=== PATIENT | female | born 1960 | race African-American/Black ===

== ENCOUNTER 2017-06-19 08:36 | Emergency (ER) | payer OTHER ==
[~2017-06-19] VITALS: Ht 157.5 cm; Wt 77.0 kg
[~2017-06-19 08:36] MED LIST: DILT180C69 PO; GABA300C PO; HYDR25TA PO; INSULIN SUBCUT; LANTUSUD SUBCUT; LIP40 PO; LOSA25TA12 PO
[2017-06-19] MEDS ORDERED: ACETAMINOPHEN WITH CODEINE 300/30MG TABLET PO STA (10:12)
[2017-06-19] MEDS ORDERED: SODIUM CHLORIDE 0.9% 1,000 ML IV ONE (10:12)
[2017-06-19 11:25] LABS: BASOPHILS % 0.6 % (0.0-2.0); EOSINOPHILS % 0.2 % (0.0-5.0); HEMATOCRIT. 39.6 % (36.0-48.0); HEMOGLOBIN. 12.5 g/dL (12.0-16.0); LYMPHOCYTES % 11.5 % (20.0-50.0); MEAN CORPUSCULAR HEMOGLOBIN 28.3 pg (28.0-32.0); MEAN CORPUSCULAR VOLUME 89.8 fL (81.0-99.0); MEAN PLATELET VOLUME 9.8 fl (7.4-10.4); MONOCYTES % 4.9 % (2.0-8.0); NEUTROPHILS % 82.8 % (40.0-76.0); PLATELET 248 x1000/uL (130-400); RED BLOOD CELL COUNT 4.41 mill/uL (4.2-5.4)
[2017-06-19 11:31] LABS: PROTHROMBIN TIME 10.8 sec (9.4-11.6)
[2017-06-19 11:39] LABS: CARBON DIOXIDE 26 mEq/L (21-32); CHLORIDE 99 mEq/L (98-107)
[2017-06-19] MEDS ORDERED: INSULIN REGULAR (HUMULIN R) 300UNITS/3ML IV ONE ×2 (12:15→14:00)
[2017-06-19 13:34] VITALS: BP 140/92
== END 2017-06-19 15:33 | disposition home or self-care (01) ==
LOC: ER 08:53
DX: E11.649 Type 2 diabetes mellitus with hypoglycemia without coma (principal); R41.0 Disorientation, unspecified; R51 Headache; T38.3X5A Adverse effect of insulin and oral hypoglycemic [antidiabetic] drugs, initial encounter; Y92.098 Other place in other non-institutional residence as the place of occurrence of the external cause; I12.9 Hypertensive chronic kidney disease with stage 1 through stage 4 chronic kidney disease, or unspecified chronic kidney disease; E11.22 Type 2 diabetes mellitus with diabetic chronic kidney disease; N18.9 Chronic kidney disease, unspecified; Z90.710 Acquired absence of both cervix and uterus; Z79.4 Long term (current) use of insulin; Z79.899 Other long term (current) drug therapy
CPT/HCPCS: 36415; 70450; 80053; 82962; 85025; 85610; 93005; 96361; 96374; 96376; 99285; J1815; J7030

== ENCOUNTER 2018-01-10 14:06 | Emergency (ER) | payer OTHER ==
[~2018-01-10] VITALS: Ht 165.1 cm; Wt 80.0 kg
[2018-01-10] MEDS ORDERED: ACETAMINOPHEN WITH CODEINE 300/30MG TABLET PO ONE (15:00)
[2018-01-10 16:24] VITALS: BP 142/71
== END 2018-01-10 16:25 | disposition home or self-care (01) ==
LOC: ER 14:54
DX: S90.02XA Contusion of left ankle, initial encounter (principal); V03.90XA Pedestrian on foot injured in collision with car, pick-up truck or van, unspecified whether traffic or nontraffic accident, initial encounter; Y93.01 Activity, walking, marching and hiking; Y92.410 Unspecified street and highway as the place of occurrence of the external cause; R03.0 Elevated blood-pressure reading, without diagnosis of hypertension; E78.00 Pure hypercholesterolemia, unspecified
CPT/HCPCS: 73552; 73590; 73630; 99284

== ENCOUNTER 2018-06-18 05:40 | Emergency (ER) | payer OTHER ==
[~2018-06-18] VITALS: Ht 165.1 cm; Wt 95.0 kg
[~2018-06-18 05:40] MED LIST changes: +DILT180C66 PO; -DILT180C69 PO
[2018-06-18] MEDS ORDERED: BLOOD SUGAR DIAGNOSTIC STRIP TEST ONE (07:15)
[2018-06-18 07:17] VITALS: BP 140/84
== END 2018-06-18 07:46 | disposition home or self-care (01) ==
LOC: ER 05:40
DX: E11.649 Type 2 diabetes mellitus with hypoglycemia without coma (principal); E78.00 Pure hypercholesterolemia, unspecified; I10 Essential (primary) hypertension; Z98.890 Other specified postprocedural states; Z79.4 Long term (current) use of insulin; Z79.899 Other long term (current) drug therapy
CPT/HCPCS: 82962; 93005; 99283

== ENCOUNTER 2020-03-10 22:19 | Emergency (ER) | payer OTHER ==
[~2020-03-10] VITALS: Ht 157.5 cm; Wt 87.0 kg
[~2020-03-10 22:19] MED LIST changes: -LOSA25TA12 PO; +LOSA25TA26 PO
[2020-03-10] MEDS ORDERED: HYDROCODONE/ACETAMINOPHEN 5/325MG TABLET PO ONE (23:00)
[2020-03-10 23:32] VITALS: BP 133/68
== END 2020-03-10 23:33 | disposition home or self-care (01) ==
LOC: ER 22:19
DX: S90.562A Insect bite (nonvenomous), left ankle, initial encounter (principal); M25.572 Pain in left ankle and joints of left foot; E11.9 Type 2 diabetes mellitus without complications; E78.5 Hyperlipidemia, unspecified; I10 Essential (primary) hypertension; W57.XXXA Bitten or stung by nonvenomous insect and other nonvenomous arthropods, initial encounter; Y93.9 Activity, unspecified; Y92.9 Unspecified place or not applicable; Z79.4 Long term (current) use of insulin; Z85.9 Personal history of malignant neoplasm, unspecified; Z98.890 Other specified postprocedural states
CPT/HCPCS: 99282

== ENCOUNTER 2021-03-14 19:45 | Emergency (ER) | payer MEDICARE, MEDICAID ==
[~2021-03-14] VITALS: Ht 157.5 cm; Wt 77.0 kg
[2021-03-14] MEDS ORDERED: KETOROLAC 15MG/ML VIAL IM ONE (21:45)
[2021-03-14 22:00] VITALS: BP 143/78
== END 2021-03-15 00:18 | disposition left against medical advice (07) ==
LOC: ER 19:45
DX: M79.645 Pain in left finger(s) (principal); E11.9 Type 2 diabetes mellitus without complications; I10 Essential (primary) hypertension; Z98.890 Other specified postprocedural states; Z79.899 Other long term (current) drug therapy
CPT/HCPCS: 73130; 96372; 99283; J1885

== ENCOUNTER 2022-03-06 13:20 | Inpatient (IN) | payer OTHER ==
[~2022-03-06] VITALS: Ht 157.5 cm; Wt 84.5 kg
[2022-03-06] MEDS ORDERED: MORPHINE SULFATE 4 MG/ML CPJ (NOT FOR IM USE) IV STA (14:17)
[2022-03-06] MEDS ORDERED: MORPHINE SULFATE 4 MG/ML CPJ (NOT FOR IM USE) IV NR (14:27)
[2022-03-06 16:17] LABS: BASOPHILS % 0.7 % (0.0-2.0); EOSINOPHILS % 0.2 % (0.0-5.0); HEMATOCRIT. 37.8 % (36.0-48.0); HEMOGLOBIN. 12.3 g/dL (12.0-16.0); LYMPHOCYTES % 7.6 % (20.0-50.0); MEAN CORPUSCULAR HEMOGLOBIN 28.6 pg (28.0-32.0); MEAN CORPUSCULAR VOLUME 87.8 fL (81.0-99.0); MEAN PLATELET VOLUME 9.3 fl (7.4-10.4); MONOCYTES % 5.9 % (2.0-8.0); NEUTROPHILS % 85.6 % (40.0-76.0); PLATELET 286 x1000/uL (130-400); RED BLOOD CELL COUNT 4.31 mill/uL (4.2-5.4)
[2022-03-06 16:25] LABS: CHLORIDE 107 mEq/L (98-107)
[2022-03-06 16:26] LABS: PROTHROMBIN TIME 10.8 sec (9.6-11.0)
[2022-03-06] MEDS ORDERED: MORPHINE SULFATE 4 MG/ML CPJ (NOT FOR IM USE) IV ONE ×2 (16:30→23:00)
[2022-03-06] MEDS ORDERED: ACETAMINOPHEN 325MG TABLET PO ONE (23:00)
[2022-03-07] MEDS ORDERED: IOHEXOL-350 100 ML BOTTLE ONE (00:26)
[2022-03-07] MEDS ORDERED: CEFTRIAXONE 1 G PREMIX 50 ML IV ONE (02:15)
[2022-03-07] MEDS ORDERED: DIATR MEGLU/DIATRIZOATE SOLN 30ML PO SCH (07:00)
[2022-03-07] MEDS ORDERED: DIATR MEGLU/DIATRIZOATE SOLN 30ML ONE (08:47)
[2022-03-07 09:15] VITALS: BP 125/77
[2022-03-07] MEDS ORDERED: ACETAMINOPHEN 650MG SUPP PR PRN (10:45)
[2022-03-07] MEDS ORDERED: ENOXAPARIN 40MG/0.4ML SYR SUBCUT SCH (10:45)
[2022-03-07] MEDS: MORPHINE SULFATE 2 MG/ML CPJ (NOT FOR IM USE) IV PRN ×3 (11:21→20:13)
[2022-03-07 12:00] VITALS: BP 128/73
[2022-03-07] MEDS ORDERED: VITA-261 MT (13:28)
[2022-03-07] MEDS ORDERED: PIPERACILLIN/TAZ 3.375G PREMIX 50 ML IV SCH (14:00)
[2022-03-07] MEDS: DEXT 5%/0.45% NACL 1000ML 1,000 ML IV SCH (15:26)
[2022-03-07] MEDS: PIPERACILLIN/TAZOBACTAM 3.375G in DEXT 5% WATER 50ML IV SCH ×2 (15:27→20:14)
[2022-03-07] MEDS: ENOXAPARIN 30MG/0.3ML SYR SUBCUT SCH (15:30)
[2022-03-07 16:00] VITALS: BP 122/69
[2022-03-07] MEDS ORDERED: NALOXONE HCL 0.4MG/ML VIAL IV PRN (17:15)
[2022-03-07] MEDS: ACETAMINOPHEN 325MG TABLET PO PRN (17:32)
[2022-03-07 20:00] VITALS: BP 132/73
[2022-03-07 21:47] LABS: BASOPHILS % 0.3 % (0.0-2.0); EOSINOPHILS % 0.2 % (0.0-5.0); HEMATOCRIT. 34.7 % (36.0-48.0); HEMOGLOBIN. 11.3 g/dL (12.0-16.0); MEAN CORPUSCULAR HEMOGLOBIN 28.6 pg (28.0-32.0); MEAN CORPUSCULAR VOLUME 87.8 fL (81.0-99.0); MEAN PLATELET VOLUME 9.2 fl (7.4-10.4); MONOCYTES % 6.1 % (2.0-8.0); NEUTROPHILS % 84.4 % (40.0-76.0); PLATELET 259 x1000/uL (130-400); RED BLOOD CELL COUNT 3.95 mill/uL (4.2-5.4); RED CELL DISTRIBUTION WIDTH 16.2 % (11.6-14.6)
[2022-03-07 22:19] LABS: CHLORIDE 101 mEq/L (98-107)
[2022-03-08] MEDS: DEXT 5%/0.45% NACL 1000ML 1,000 ML IV SCH ×2 (00:05→13:25)
[2022-03-08] MEDS: ONDANSETRON HCL 4MG/2ML INJ IV PRN (02:24)
[2022-03-08] MEDS: DIPHENHYDRAMINE 25MG CAPSULE PO PRN ×2 (02:24→09:34)
[2022-03-08] MEDS: MORPHINE SULFATE 2 MG/ML CPJ (NOT FOR IM USE) IV PRN ×2 (02:25→09:28)
[2022-03-08 04:00] VITALS: BP 135/62
[2022-03-08] MEDS: PIPERACILLIN/TAZOBACTAM 3.375G in DEXT 5% WATER 50ML IV SCH ×3 (06:50→22:00)
[2022-03-08 08:00] VITALS: BP 114/65
[2022-03-08] MEDS: ENOXAPARIN 30MG/0.3ML SYR SUBCUT SCH (11:30)
[2022-03-08] MEDS ORDERED: ROCURONIUM BROMIDE 10MG/ML VIAL 5ML IV ONE (12:52)
[2022-03-08] MEDS ORDERED: DEXAMETHASONE 4MG/ML 1ML VIAL ONE (12:52)
[2022-03-08] MEDS ORDERED: ONDANSETRON HCL 4MG/2ML INJ ONE (12:52)
[2022-03-08] MEDS ORDERED: SUCCINYLCHOLINE CHLORIDE 200MG/10ML IV ONE (12:52)
[2022-03-08] MEDS ORDERED: GLYCOPYRROLATE 0.2 MG/ML 2ML VIAL ONE ×3 (12:53→14:06)
[2022-03-08] MEDS ORDERED: PROPOFOL 200MG/20ML VIAL IV ONE (12:53)
[2022-03-08] MEDS ORDERED: MIDAZOLAM HCL 2 MG/2 ML VIAL ONE ×2 (12:54→13:50)
[2022-03-08] MEDS ORDERED: FENTANYL CITRATE/PF 50MCG/ML 2ML VIAL ONE (12:54)
[2022-03-08] MEDS ORDERED: BUPIVACAINE HCL/PF 0.5% (5MG/ML) 10ML ONE (13:41)
[2022-03-08] MEDS ORDERED: NEOSTIGMINE METHYLSULFATE 1MG/ML 10 ML VIAL ONE (13:48)
[2022-03-08] MEDS ORDERED: ONDANSETRON HCL 4MG/2ML INJ IV PRN (14:30)
[2022-03-08] MEDS ORDERED: MEPERIDINE HCL/PF 25MG/ML CPJ IV PRN (14:30)
[2022-03-08] MEDS ORDERED: LORAZEPAM 2MG/ML CPJ IV NR (14:30)
[2022-03-08] MEDS ORDERED: HYDROMORPHONE HCL/PF 2MG/ML CPJ IV PRN (14:30)
[2022-03-08] MEDS ORDERED: LABETALOL 5MG/ML SYR 20 MG/4 ML SYRINGE IV PRN (14:30)
[2022-03-08] MEDS ORDERED: BUPIVACAINE HCL 0.5% 125 ML in ON-Q PM012 DRUG DELIV DEVICE 1 EA IR SCH (14:30)
[2022-03-08 15:03] LABS: BG BASE EXCESS -8.8 mmol/L (-2.0-2.0); BG CARBOXYHEMOGLOBIN 0.3 % (0.5-1.5); BG DEOXYHEMOGLOBIN 1.1 % (0.0-5.0); BG FRACTION INSPIRED OXYGEN 100; BG HCO3 ACT 16.2 mmol/L (22.0-26.0); BG METHEMOGLOBIN 0.2 % (0.0-1.5); BG OXYGEN SATURATION 98.9 % (92.0-98.5); BG OXYHEMOGLOBIN 98.4 % (94.0-97.0); BG PCO2 32.3 mmHg (35.0-45.0); BG PH 7.319 (7.350-7.450); BG PO2 178.2 mmHg (75.0-100.0); BG SAMPLE SITE LEFT RADIAL; BG TOTAL HEMOGLOBIN 12.2 g/dL (12.0-18.0); BG VENT MODE VENT - AC
[2022-03-08 20:00] VITALS: BP 109/53
[2022-03-08] MEDS ORDERED: DEXTROSE 50% WATER 50ML SYRINGE IV PRN ×2 (20:30)
[2022-03-08] MEDS ORDERED: INSULIN LISPRO 100 UNITS/ML SUBCUT NR (20:30)
[2022-03-08] MEDS: BLOOD SUGAR DIAGNOSTIC STRIP TEST SCH (20:52)
[2022-03-08] MEDS ORDERED: BLOOD SUGAR DIAGNOSTIC STRIP TEST SCH (21:00)
[2022-03-08] MEDS ORDERED: INSULIN LISPRO 100 UNITS/ML SUBCUT SCH (21:00)
[2022-03-08] MEDS ORDERED: ACETAMINOPHEN 120MG SUPP PR PRN (21:30)
[2022-03-08] MEDS ORDERED: HYDROMORPHONE PCA 10MG/50ML IV PRN (23:30)
[2022-03-08] MEDS ORDERED: DIPHENHYDRAMINE INJ IV PRN (23:30)
[2022-03-08] MEDS ORDERED: NALOXONE INJ IV PRN (23:30)
[2022-03-08] MEDS ORDERED: ONDANSETRON INJ IV PRN (23:30)
[2022-03-09] VITALS: BP 95/55
[2022-03-09] MEDS: INSULIN LISPRO 100 UNITS/ML SUBCUT SCH ×4 (03:00→22:24)
[2022-03-09 04:00] VITALS: BP 96/42
[2022-03-09] MEDS: PIPERACILLIN/TAZOBACTAM 3.375G in DEXT 5% WATER 50ML IV SCH ×3 (06:08→22:25)
[2022-03-09] MEDS: BLOOD SUGAR DIAGNOSTIC STRIP TEST SCH ×4 (06:27→21:13)
[2022-03-09 07:53] LABS: BASOPHILS % 0.3 % (0.0-2.0); HEMATOCRIT. 34.2 % (36.0-48.0); HEMOGLOBIN. 10.5 g/dL (12.0-16.0); LYMPHOCYTES % 7.2 % (20.0-50.0); MEAN CORPUSCULAR HEMOGLOBIN 28.6 pg (28.0-32.0); MEAN CORPUSCULAR VOLUME 93.7 fL (81.0-99.0); MEAN PLATELET VOLUME 8.9 fl (7.4-10.4); MONOCYTES % 8.2 % (2.0-8.0); NEUTROPHILS % 84.3 % (40.0-76.0); PLATELET 250 x1000/uL (130-400); RED BLOOD CELL COUNT 3.65 mill/uL (4.2-5.4); RED CELL DISTRIBUTION WIDTH 16.6 % (11.6-14.6)
[2022-03-09 08:00] VITALS: BP 117/65
[2022-03-09] MEDS ORDERED: INSULIN GLARGINE 100 UNITS/ML SUBCUT ONE (10:15)
[2022-03-09] MEDS: ENOXAPARIN 30MG/0.3ML SYR SUBCUT SCH (11:30)
[2022-03-09 12:00] VITALS: BP 111/66
[2022-03-09 16:00] VITALS: BP 107/62
[2022-03-09 16:18] LABS: BG BASE EXCESS -10.8 mmol/L (-2.0-2.0); BG CARBOXYHEMOGLOBIN 0.8 % (0.5-1.5); BG DEOXYHEMOGLOBIN 5.5 % (0.0-5.0); BG FRACTION INSPIRED OXYGEN 24; BG HCO3 ACT 15.3 mmol/L (22.0-26.0); BG METHEMOGLOBIN 0.2 % (0.0-1.5); BG OXYGEN SATURATION 94.4 % (92.0-98.5); BG OXYHEMOGLOBIN 93.5 % (94.0-97.0); BG PCO2 35.3 mmHg (35.0-45.0); BG PH 7.256 (7.350-7.450); BG PO2 77.4 mmHg (75.0-100.0); BG SAMPLE SITE RIGHT BRACHIAL; BG TOTAL HEMOGLOBIN 12.6 g/dL (12.0-18.0); BG VENT MODE NASAL CANNULA
[2022-03-09 18:26] LABS: CHLORIDE 100 mEq/L (98-107)
[2022-03-09] MEDS: LORAZEPAM 2MG/ML CPJ IV PRN (19:52)
[2022-03-09] MEDS ORDERED: ACETAMINOPHEN 325MG SUPP PR PRN (21:30)
[2022-03-09 22:55] VITALS: BP 136/68
[2022-03-09] MEDS: DEXT 5%/0.45% NACL 1000ML 1,000 ML IV SCH (23:54)
[2022-03-10] VITALS (12 sets, daily range): BP systolic 115–157; BP diastolic 67–83
[2022-03-10] MEDS: PIPERACILLIN/TAZOBACTAM 3.375G in DEXT 5% WATER 50ML IV SCH ×3 (05:20→21:24)
[2022-03-10] MEDS: BLOOD SUGAR DIAGNOSTIC STRIP TEST SCH ×4 (07:51→20:24)
[2022-03-10] MEDS: INSULIN LISPRO 100 UNITS/ML SUBCUT SCH ×4 (08:12→20:24)
[2022-03-10] MEDS ORDERED: INSULIN GLARGINE 100 UNITS/ML SUBCUT SCH (10:00)
[2022-03-10] MEDS: SODIUM CHLORIDE 0.45% 1,000 ML IV SCH (10:03)
[2022-03-10] MEDS: ENOXAPARIN 30MG/0.3ML SYR SUBCUT SCH (11:40)
[2022-03-10 12:36] LABS: CHLORIDE 100 mEq/L (98-107)
[2022-03-10] MEDS: INSULIN GLARGINE 100 UNITS/ML SUBCUT SCH (21:16)
[2022-03-10] MEDS: DIPHENHYDRAMINE 25MG CAPSULE PO PRN (21:55)
[2022-03-11] VITALS (10 sets, daily range): BP systolic 138–158; BP diastolic 67–98
[2022-03-11] MEDS: MORPHINE SULFATE 2 MG/ML CPJ (NOT FOR IM USE) IV PRN ×4 (01:51→23:47)
[2022-03-11] MEDS: DIPHENHYDRAMINE 25MG CAPSULE PO PRN (03:53)
[2022-03-11] MEDS: PIPERACILLIN/TAZOBACTAM 3.375G in DEXT 5% WATER 50ML IV SCH ×3 (05:03→20:28)
[2022-03-11] MEDS: SODIUM CHLORIDE 0.45% 1,000 ML IV SCH (05:34)
[2022-03-11] MEDS: LORAZEPAM 2MG/ML CPJ IV PRN (06:31)
[2022-03-11] MEDS: INSULIN LISPRO 100 UNITS/ML SUBCUT SCH ×4 (07:36→20:28)
[2022-03-11] MEDS: BLOOD SUGAR DIAGNOSTIC STRIP TEST SCH ×4 (07:36→20:27)
[2022-03-11 07:50] LABS: HEMATOCRIT. 30.4 % (36.0-48.0); HEMOGLOBIN. 9.9 g/dL (12.0-16.0); MEAN CORPUSCULAR HEMOGLOBIN 28.6 pg (28.0-32.0); MEAN CORPUSCULAR VOLUME 87.6 fL (81.0-99.0); MEAN PLATELET VOLUME 8.6 fl (7.4-10.4); PLATELET 298 x1000/uL (130-400); RED BLOOD CELL COUNT 3.47 mill/uL (4.2-5.4)
[2022-03-11 10:14] LABS: PLATELET ESTIMATE NORMAL
[2022-03-11] MEDS: ENOXAPARIN 30MG/0.3ML SYR SUBCUT SCH (10:31)
[2022-03-11] MEDS: INSULIN GLARGINE 100 UNITS/ML SUBCUT SCH ×2 (10:32→20:28)
[2022-03-12] VITALS: BP 148/83
[2022-03-12] MEDS: SODIUM CHLORIDE 0.45% 1,000 ML IV SCH ×2 (01:04→21:04)
[2022-03-12 04:00] VITALS: BP 171/84
[2022-03-12] MEDS: PIPERACILLIN/TAZOBACTAM 3.375G in DEXT 5% WATER 50ML IV SCH ×2 (05:05→13:05)
[2022-03-12] MEDS: MORPHINE SULFATE 2 MG/ML CPJ (NOT FOR IM USE) IV PRN (06:32)
[2022-03-12] MEDS: BLOOD SUGAR DIAGNOSTIC STRIP TEST SCH ×4 (07:30→21:04)
[2022-03-12 08:00] VITALS: BP 137/77
[2022-03-12] MEDS: INSULIN LISPRO 100 UNITS/ML SUBCUT SCH ×4 (08:00→21:05)
[2022-03-12] MEDS: INSULIN GLARGINE 100 UNITS/ML SUBCUT SCH ×2 (10:00→21:04)
[2022-03-12 12:00] VITALS: BP 158/93
[2022-03-12] MEDS ORDERED: HYDROCODONE/ACETAMINOPHEN 5/325MG TABLET PO PRN (12:15)
[2022-03-12] MEDS: ENOXAPARIN 30MG/0.3ML SYR SUBCUT SCH (12:19)
[2022-03-12 16:00] VITALS: BP 140/90
[2022-03-12] MEDS: HYDROCODONE/ACETAMINOPHEN 5/325MG TABLET PO PRN ×2 (16:39→23:18)
[2022-03-12 20:00] VITALS: BP 160/94
[2022-03-12] MEDS ORDERED: NALOXONE HCL 0.4MG/ML VIAL IV PRN (20:00)
[2022-03-13] VITALS (7 sets, daily range): BP systolic 137–179; BP diastolic 71–89
[2022-03-13 06:31] LABS: HEMATOCRIT. 30.5 % (36.0-48.0); HEMOGLOBIN. 10.1 g/dL (12.0-16.0); MEAN CORPUSCULAR HEMOGLOBIN 28.9 pg (28.0-32.0); MEAN PLATELET VOLUME 8.3 fl (7.4-10.4); PLATELET 348 x1000/uL (130-400); RED BLOOD CELL COUNT 3.51 mill/uL (4.2-5.4); RED CELL DISTRIBUTION WIDTH 16.4 % (11.6-14.6)
[2022-03-13 06:47] LABS: PHOSPHORUS 4.4 mg/dL (2.5-4.9)
[2022-03-13] MEDS: BLOOD SUGAR DIAGNOSTIC STRIP TEST SCH ×4 (07:30→21:17)
[2022-03-13] MEDS: INSULIN LISPRO 100 UNITS/ML SUBCUT SCH ×4 (08:00→21:00)
[2022-03-13] MEDS: INSULIN GLARGINE 100 UNITS/ML SUBCUT SCH ×2 (09:24→21:28)
[2022-03-13] MEDS: ACETAMINOPHEN 325MG TABLET PO PRN ×2 (09:25→20:32)
[2022-03-13] MEDS: HYDRALAZINE 20MG/ML VIAL IV PRN ×2 (10:13→21:49)
[2022-03-13] MEDS: SODIUM CHLORIDE 0.45% 1,000 ML IV SCH ×2 (10:19→23:41)
[2022-03-13 11:51] LABS: PLATELET ESTIMATE NORMAL
[2022-03-13] MEDS ORDERED: KCL 20MEQ/100ML PREMIX 100 ML IV NR (12:00)
[2022-03-13] MEDS: ENOXAPARIN 30MG/0.3ML SYR SUBCUT SCH (12:51)
[2022-03-13] MEDS: HYDROCODONE/ACETAMINOPHEN 5/325MG TABLET PO PRN (21:48)
[2022-03-14] VITALS (8 sets, daily range): BP systolic 140–173; BP diastolic 62–87
[2022-03-14 00:13] LABS: HEMATOCRIT. 30.8 % (36.0-48.0); HEMOGLOBIN. 10.2 g/dL (12.0-16.0); MEAN CORPUSCULAR HEMOGLOBIN 28.3 pg (28.0-32.0); MEAN CORPUSCULAR VOLUME 86.1 fL (81.0-99.0); PLATELET 372 x1000/uL (130-400); RED BLOOD CELL COUNT 3.58 mill/uL (4.2-5.4); RED CELL DISTRIBUTION WIDTH 15.9 % (11.6-14.6)
[2022-03-14] MEDS: KCL 10MEQ/50ML PREMIX 50 ML IV SCH ×3 (01:35→04:43)
[2022-03-14] MEDS: ACETAMINOPHEN 325MG TABLET PO PRN ×2 (01:49→20:28)
[2022-03-14 02:29] LABS: PLATELET ESTIMATE NORMAL
[2022-03-14] MEDS: INSULIN LISPRO 100 UNITS/ML SUBCUT SCH ×4 (08:00→20:11)
[2022-03-14] MEDS: BLOOD SUGAR DIAGNOSTIC STRIP TEST SCH ×4 (08:12→20:11)
[2022-03-14] MEDS: INSULIN GLARGINE 100 UNITS/ML SUBCUT SCH ×2 (10:13→21:44)
[2022-03-14] MEDS: ENOXAPARIN 30MG/0.3ML SYR SUBCUT SCH (10:14)
[2022-03-14] MEDS: HYDRALAZINE 20MG/ML VIAL IV PRN (10:49)
[2022-03-14 12:08] LABS: HEMATOCRIT. 34.3 % (36.0-48.0); HEMOGLOBIN. 11.2 g/dL (12.0-16.0); MEAN CORPUSCULAR HEMOGLOBIN 28.5 pg (28.0-32.0); MEAN CORPUSCULAR VOLUME 87.5 fL (81.0-99.0); MEAN PLATELET VOLUME 8.5 fl (7.4-10.4); PLATELET 439 x1000/uL (130-400); RED BLOOD CELL COUNT 3.92 mill/uL (4.2-5.4); RED CELL DISTRIBUTION WIDTH 16.2 % (11.6-14.6)
[2022-03-14 12:32] LABS: CHLORIDE 106 mEq/L (98-107)
[2022-03-14] MEDS: SODIUM CHLORIDE 0.45% 1,000 ML IV SCH (12:59)
[2022-03-14 13:45] LABS: PLATELET ESTIMATE SLIGHTLY INCREASED
[2022-03-14] MEDS: ONDANSETRON HCL 4MG/2ML INJ IV PRN ×2 (18:44→23:18)
[2022-03-14 19:37] LABS: CLARITY URINE CLEAR (CLEAR); COLOR URINE YELLOW (YELLOW); KETONES URINE 1+ (NEGATIVE); LEUKOCYTE ESTERASE URINE NEGATIVE (NEGATIVE); NITRITE URINE NEGATIVE (NEGATIVE); OCCULT BLOOD URINE TRACE (NEGATIVE); PROTEIN URINE 2+ (NEGATIVE); SPECIFIC GRAVITY URINE 1.011 (1.005-1.030); UROBILINOGEN URINE 0.2 E.U./dL (0.2-1.0)
[2022-03-14] MEDS: PIPERACILLIN/TAZOBACTAM 3.375 G in DEXTROSE 5% WATER 50 ML IV SCH (20:11)
[2022-03-14 20:13] LABS: INR 1.1; PROTHROMBIN TIME 11.7 sec (9.6-11.0)
[2022-03-15] VITALS (7 sets, daily range): BP systolic 109–157; BP diastolic 65–73
[2022-03-15] MEDS: HYDROCODONE/ACETAMINOPHEN 5/325MG TABLET PO PRN (00:59)
[2022-03-15] MEDS: SODIUM CHLORIDE 0.45% 1,000 ML IV SCH ×2 (01:48→15:45)
[2022-03-15] MEDS: BLOOD SUGAR DIAGNOSTIC STRIP TEST SCH ×4 (07:40→21:00)
[2022-03-15] MEDS: INSULIN LISPRO 100 UNITS/ML SUBCUT SCH ×4 (08:10→21:50)
[2022-03-15] MEDS: PIPERACILLIN/TAZOBACTAM 3.375 G in DEXTROSE 5% WATER 50 ML IV SCH ×2 (08:42→22:21)
[2022-03-15] MEDS: ONDANSETRON HCL 4MG/2ML INJ IV PRN (08:42)
[2022-03-15] MEDS: INSULIN GLARGINE 100 UNITS/ML SUBCUT SCH ×2 (10:00→22:31)
[2022-03-15] MEDS: ENOXAPARIN 30MG/0.3ML SYR SUBCUT SCH (12:20)
[2022-03-15] MEDS ORDERED: LEVO500T90 MT (14:57)
[2022-03-15] MEDS ORDERED: DOCU-138 MT (14:58)
[2022-03-15 18:10] LABS: HEMATOCRIT. 32.1 % (36.0-48.0); HEMOGLOBIN. 10.4 g/dL (12.0-16.0); MEAN CORPUSCULAR HEMOGLOBIN 28.5 pg (28.0-32.0); MEAN PLATELET VOLUME 8.5 fl (7.4-10.4); PLATELET 450 x1000/uL (130-400); RED BLOOD CELL COUNT 3.65 mill/uL (4.2-5.4); RED CELL DISTRIBUTION WIDTH 16.4 % (11.6-14.6)
[2022-03-15 18:23] LABS: CHLORIDE 105 mEq/L (98-107)
[2022-03-15 19:07] LABS: PLATELET ESTIMATE INCREASED
[2022-03-15] MEDS: ACETAMINOPHEN 325MG TABLET PO PRN (20:59)
[2022-03-15] MEDS: GABAPENTIN 300MG CAPSULE PO SCH (21:47)
[2022-03-16] VITALS: BP 151/67
[2022-03-16 04:00] VITALS: BP_SYST 146; BP_SYST 159; BP_DIAS 51; BP_DIAS 63
[2022-03-16] MEDS: GABAPENTIN 300MG CAPSULE PO SCH ×2 (07:15→13:39)
[2022-03-16 07:27] LABS: BASOPHILS % 0.7 % (0.0-2.0); EOSINOPHILS % 1.9 % (0.0-5.0); HEMATOCRIT. 31.3 % (36.0-48.0); HEMOGLOBIN. 10.1 g/dL (12.0-16.0); LYMPHOCYTES % 16.8 % (20.0-50.0); MEAN CORPUSCULAR HEMOGLOBIN 28.4 pg (28.0-32.0); MEAN CORPUSCULAR VOLUME 88.4 fL (81.0-99.0); MEAN PLATELET VOLUME 9.1 fl (7.4-10.4); MONOCYTES % 7.9 % (2.0-8.0); NEUTROPHILS % 72.7 % (40.0-76.0); PLATELET 429 x1000/uL (130-400); RED BLOOD CELL COUNT 3.54 mill/uL (4.2-5.4)
[2022-03-16 08:00] VITALS: BP 150/70
[2022-03-16] MEDS: INSULIN LISPRO 100 UNITS/ML SUBCUT SCH ×2 (08:10→12:16)
[2022-03-16] MEDS: BLOOD SUGAR DIAGNOSTIC STRIP TEST SCH ×2 (08:15→12:16)
[2022-03-16] MEDS: PIPERACILLIN/TAZOBACTAM 3.375 G in DEXTROSE 5% WATER 50 ML IV SCH (08:48)
[2022-03-16] MEDS: ENOXAPARIN 30MG/0.3ML SYR SUBCUT SCH (10:32)
[2022-03-16] MEDS: INSULIN GLARGINE 100 UNITS/ML SUBCUT SCH (10:32)
[2022-03-16 12:00] VITALS: BP 150/71
[2022-03-16 12:40] VITALS: BP 150/71
== END 2022-03-16 14:10 | disposition home or self-care (01) | DRG 853 ==
LOC: ER 13:20 → MICUSO 03-07 02:00 → 8WST 03-07 09:31 → 5EST 03-09 22:44 → 7WST 03-15 06:45
PROVIDERS: ADMIT Internal Medicine; ATTEND Internal Medicine
PROC: 0JH80VZ Insertion of Infusion Pump into Abdomen Subcutaneous Tissue and Fascia, Open Approach (ICD-10-PCS; principal; 2022-03-08)
PROC: 0DB80ZZ Excision of Small Intestine, Open Approach (ICD-10-PCS; 2022-03-08)
DX: A41.9 Sepsis, unspecified organism (principal); K63.1 Perforation of intestine (nontraumatic); K65.9 Peritonitis, unspecified; N17.9 Acute kidney failure, unspecified; N18.4 Chronic kidney disease, stage 4 (severe); E87.1 Hypo-osmolality and hyponatremia; E11.22 Type 2 diabetes mellitus with diabetic chronic kidney disease; E78.5 Hyperlipidemia, unspecified; I12.9 Hypertensive chronic kidney disease with stage 1 through stage 4 chronic kidney disease, or unspecified chronic kidney disease; E66.9 Obesity, unspecified; Z90.710 Acquired absence of both cervix and uterus; Z68.34 Body mass index [BMI] 34.0-34.9, adult
CPT/HCPCS: 36415; 36600; 70551; 71045; 71275; 74018; 74174; 74176; 80048; 80053; 81003; 82140; 82375; 82805; 82962; 83036; 83735; 84100; 85025; 87426; 93005; 94002; 97116; 97162; 97530; 99285; C1893; J0330; J0360; J0696; J1100; J1200; J1650; J1815; J2060; J2250; J2270; J2405; J2543; J2704; J2710; J3010; J3480; J3490; J7060; Q0163; Q9963; Q9967; A4315